=== PATIENT | female | born 1950 | race Caucasian/White ===

== ENCOUNTER 2017-03-21 12:59 | Day surgery (SDC) | payer BC ==
[2017-03-21] MEDS ORDERED: Lidocaine 1% MPF wEPI 200,000* 30 ML SDV ONE (15:09)
[2017-03-21] MEDS ORDERED: Sodium Bicarbonate 8.4% SYR* 10 ML SYRINGE ONE (15:09)
[2017-03-21] MEDS ORDERED: Bupivacaine 0.25% SDV* 30 ML ONE (15:59)
[2017-03-21 16:44] VITALS: BP 128/75
--- NOTE | 2017-04-16 20:37 | OP ---
DATE OF OPERATION: 03/21/17 - [facility] DATE OF : 54 SURGEON: Bert Jane MD ANESTHESIA: Local only with 1% lidocaine with epinephrine and bicarbonate. PRE-OP DIAGNOSIS: Left middle trigger finger. POST-OP DIAGNOSIS: Left middle trigger finger. OPERATIVE PROCEDURE: Left middle trigger finger A1 chente release. INDICATIONS: Gladis has had steroid injection for the trigger finger and it has recurred now, I believe she has had a couple of them. We had talked about risks and benefits. She wanted to proceed with the release. ESTIMATED BLOOD LOSS: 2 mL. COMPLICATIONS: None. FINDINGS: As expected. DESCRIPTION OF PROCEDURE: Ms. Lino was seen in the preoperative area. We had a time-out. I infiltrated the operative area with 1% lidocaine with epinephrine and bicarbonate. A short time later, we came back to the operating room. The arm was prepped and draped in usual fashion. I made a 1 cm longitudinal incision over the A1 chente of the left middle finger. Soft tissue was bluntly released off the tendon sheath. The tendon sheath was incised longitudinally and the release was completed distally and proximally. With the tenotomy scissors, this was done just off the radial aspect of the midline. Once the release was completed, I had her flex and extend the finger. There was no more catching so we irrigated out the wound. Skin was closed with 4-0 Monocryl suture. Wound was dressed with Xeroform, 4x4s , sterile Webril, and Fransico bandage. She was taken to the recovery room in stable condition. [id number]/[facility] #: [id number] MTDD
== END 2017-03-21 16:58 | disposition home or self-care (01) ==
LOC: OREAST 12:59
PROVIDERS: ATTEND Orthopaedic Surgery Hand Surgery
DX: M65.332 Trigger finger, left middle finger (principal); Z87.891 Personal history of nicotine dependence; M77.12 Lateral epicondylitis, left elbow
CPT/HCPCS: J2001

== ENCOUNTER 2019-04-22 20:13 | Emergency (ER) | payer MEDICARE ==
--- OUTSIDE RECORDS SUMMARY | 2019-04-22 20:42 | XMS REPORT | Continuity of Care Document ---
:1950 External Reference #:[id number] Author Name Luis Fernando Paige MD (transmitted by agent of provider Telma Subramanian) Address [address] [place] [id number] Care Team Providers Name Role Phone Ezequiel ONEIL Donnelly - Family Care Team Information Tin Assorter [phone] Problems Active Problems Provider Date Lateral epicondylitis Bert Jane MD Onset: 02/22/2017 Acquired trigger finger Bert Jane MD Onset: 02/22/2017 Social History Type Date Description Comments Sex Unknown ETOH Use Denies alcohol use Tobacco Use Start: Unknown End: Patient is a former Quit 1985 after 15 Unknown smoker years of 1 pack a week Recreational Drug Use Denies Drug Use Smoking Status Reviewed: 04/06/19 Patient is a former Quit 1985 after 15 smoker years of 1 pack a week Exercise Type/Frequency Exercises regularly Exercise Type/Frequency Exercises sporadically Allergies, Adverse Reactions, Alerts Active Allergies Reaction Severity Comments Date Codeine 02/15/2014 Sudafed 02/15/2014 Latex 02/22/2017 Red Yeast Rice Nausea,CALDWELL, Muscle discomfort 11/24/2018 Statins 11/25/2018 Medications Active Medications SIG Qnty Indications Ordering Provider Date Biotin Unknown [place]-3 Plus Unknown [facility] & 1 cap po qd Unknown Wellness Capsules Medications Administered in Office Medication SIG Qnty Indications Ordering Provider Date Celestone 3 mg and 3mg Bert Jane MD 09/21/2016 Injection Immunizations Description No Information Available Vital Signs Date Vital Result Comment 04/06/2019 1:19pm Height 64 inches 5'4" Weight 146.00 lb Heart Rate 78 /min BP Systolic 122 mmHg BP Diastolic 76 mmHg Respiratory Rate 12 /min Pain Level 5 BMI (Body Mass Index) 25.1 kg/m2 11/25/2018 10:31am Height 64 inches 5'4" Weight 145.00 lb Heart Rate 80 /min BP Systolic 132 mmHg Rue reg cuff sitting BP Diastolic 86 mmHg Rue reg cuff sitting BP Systolic Sitting 128 mmHg Lue reg cuff sitting BP Diastolic Sitting 90 mmHg Lue reg cuff sitting BP Systolic Standing 126 mmHg Lue reg cuff standing BP Diastolic Standing 90 mmHg Lue reg cuff standing Respiratory Rate 13 /min BMI (Body Mass Index) 24.9 kg/m2 Results Description No Information Available Procedures Date Code Description Status 01/21/2019 15356 Holter Monitor Review (24 hr)dr review & interp only Completed 01/19/2019 31307 ECG Monitor/Recording W/Visual Superimposition Scanning Completed 11/25/2018 65999 EKG Tracing & Interpretation Completed Medical Devices Description No Information Available Encounters Type Date Location Provider Dx Diagnosis Office Visit 11/25/2018 [facility] Rhett Sargent, E78.5 Hyperlipidemia, 10:40a Of Recreation Establishment Manager DO FACC unspecified Z82.49 Family hx of ischem heart dis and oth dis of the circ sys R00.2 Palpitations E78.01 Familial hypercholesterolemia Assessments Date Code Description Provider 04/06/2019 S46.012A Strain of muscle(s) and tendon(s) of the Luis Fernando Paige MD rotator cuff of left shoulder, initial encounter 04/06/2019 M25.512 Pain in left shoulder Luis Fernando Paige MD 01/21/2019 R00.2 Palpitations Leesa Gottlieb M.D. 01/19/2019 R00.2 Palpitations Nurse Visit IC 11/25/2018 E78.5 Hyperlipidemia, unspecified Rhett Sargent DO FACC 11/25/2018 Z82.49 Family history of ischemic heart disease Rhett Sargent DO FAC and other diseases of the circulatory system 11/25/2018 R00.2 Palpitations Rhett Sargent DO FACC 11/25/2018 E78.01 Familial hypercholesterolemia Rhett Sargent DO FAC Plan of Treatment 04/06/2019 - Luis Fernando Paige, MDS46.012A Strain of muscle(s) and tendon(s) of the rotator cuff of left shoulder, initial encounterNew Xrays:MRI Shoulder Left W/O, Ordered: 04/06/19Follow up:Follow up: after MRIM25.512 Pain in left shoulder Functional Status Description No Information Available Mental Status Description No Information Available Referrals Description No Information Available
--- OUTSIDE RECORDS SUMMARY | 2019-04-22 20:42 | XMS REPORT | Continuity of Care Document ---
:1950 External Reference #:[id number] Author Name Luis Fernando Paige MD (transmitted by agent of provider Rufina Aldana) Address [address] [place] [id number] Care Team Providers Name Role Phone Cony Nieves NP - Family Care Team Information Air Quality Manager [phone] Problems Active Problems Provider Date Lateral epicondylitis Bert Jane MD Onset: 02/22/2017 Acquired trigger finger Bert Jane MD Onset: 02/22/2017 Social History Type Date Description Comments Sex Unknown ETOH Use Denies alcohol use Tobacco Use Start: Unknown End: Patient is a former Quit 1985 after 15 Unknown smoker years of 1 pack a week Recreational Drug Use Denies Drug Use Smoking Status Reviewed: 04/16/19 Patient is a former Quit 1985 after 15 smoker years of 1 pack a week Exercise Type/Frequency Exercises regularly Exercise Type/Frequency Exercises sporadically Allergies, Adverse Reactions, Alerts Active Allergies Reaction Severity Comments Date Codeine 02/15/2014 Sudafed 02/15/2014 Latex 02/22/2017 Red Yeast Rice Nausea,CALDWELL, Muscle discomfort 11/24/2018 Statins 11/25/2018 Medications Active Medications SIG Qnty Indications Ordering Date Provider Valium take 1-2 2tabs Luis Fernando Alexander 04/13/2019 5mg Tablets tablets before MD Grecia mri Methylprednisolone take as 21units S46.012A Luis Fernando Alexander 04/06/2019 4mg TBPK directed MD Grecia [place]-3 Plus Unknown Probiotic 1 by mouth Unknown Capsules every day Medications Administered in Office Medication SIG Qnty Indications Ordering Provider Date Celestone 3 mg and 3mg Bert Jane MD 09/21/2016 Injection Immunizations Description No Information Available Vital Signs Date Vital Result Comment 04/16/2019 2:19pm Height 64 inches 5'4" Weight 146.00 lb Heart Rate 86 /min BP Systolic 120 mmHg BP Diastolic 80 mmHg Respiratory Rate 12 /min Body Temperature 98.4 F Pain Level 6 BMI (Body Mass Index) 25.1 kg/m2 04/06/2019 1:19pm Height 64 inches 5'4" Weight 146.00 lb Heart Rate 78 /min BP Systolic 122 mmHg BP Diastolic 76 mmHg Respiratory Rate 12 /min Pain Level 5 BMI (Body Mass Index) 25.1 kg/m2 Results Description No Information Available Procedures Date Code Description Status 01/21/2019 81044 Holter Monitor Review (24 hr)dr review & interp only Completed 01/19/2019 99579 ECG Monitor/Recording W/Visual Superimposition Scanning Completed 11/25/2018 09935 EKG Tracing & Interpretation Completed Medical Devices Description No Information Available Encounters Type Date Location Provider Dx Diagnosis Office Visit 11/25/2018 [facility] Rhett Sargent, E78.5 Hyperlipidemia, 10:40a Of Scale Shooter DO FACC unspecified Z82.49 Family hx of ischem heart dis and oth dis of the circ sys R00.2 Palpitations E78.01 Familial hypercholesterolemia Assessments Date Code Description Provider 04/16/2019 S40.012D Contusion of left shoulder, subsequent Luis Fernando Paige MD encounter 04/16/2019 S46.012D Strain of muscle(s) and tendon(s) of the Luis Fernando Paige MD rotator cuff of left shoulder, subsequent encounter 04/06/2019 S46.012A Strain of muscle(s) and tendon(s) of the Luis Fernando Paige MD rotator cuff of left shoulder, initial encounter 04/06/2019 M25.512 Pain in left shoulder Luis Fernando Paige MD 01/21/2019 R00.2 Palpitations Leesa Gottlieb M.D. 01/19/2019 R00.2 Palpitations Nurse Visit IC 11/25/2018 E78.5 Hyperlipidemia, unspecified Rhett Sargent DO FACC 11/25/2018 Z82.49 Family history of ischemic heart disease Rhett Sargent DO FACC and other diseases of the circulatory system 11/25/2018 R00.2 Palpitations Rhett Sargent DO FACC 11/25/2018 E78.01 Familial hypercholesterolemia Rhett Sargent, DO [facility] Plan of Treatment Future Appointment(s):05/28/2019 9:15 am - Luis Fernando Paige MD at [facility]/16/2019 - Luis Fernando Paige, MDS40.012D Contusion of left shoulder, subsequent encounterNew Therapy:Physical TherapyFollow up:Follow up: 6 weeks prnS46.012D Strain of muscle(s) and tendon(s) of the rotator cuff of left shoulder, subsequent encounter Functional Status Description No Information Available Mental Status Description No Information Available Referrals Description No Information Available
[2019-04-22] MEDS ORDERED: LORazepam TAB(*) 1 MG PO ONE (21:02)
--- NOTE | 2019-04-22 21:11 | ED ---
Psychiatric Complaint - HPI Summary HPI Summary: Patient complains of anxiety. Patient states she is concerned she is having a heart attack, would like some labs done. Denies any specific symptoms, pain or injury. Echo history is none. - History Of Current Complaint Chief Complaint: EDGeneral Time Seen by Provider: 04/22/19 21:01 Hx Obtained From: Patient Onset/Duration: Sudden Onset, Lasting Hours Timing: Constant Severity Initially: Moderate Severity Currently: Moderate Character: Anxious Aggravating Factor(s): Recent Stress Alleviating Factor(s): Nothing - Allergies/Home Medications Allergies/Adverse Reactions: Allergies Allergy/AdvReac Type Severity Reaction Status Date / Time codeine Allergy Stomach Verified 04/10/19 11:48 Cramps latex Allergy Rash Verified 04/10/19 11:48 pseudoephedrine Allergy Tachycardia Verified 04/10/19 11:48 [From Sudafed] PAIN MEDICATIONS Allergy DOES NOT Uncoded 04/10/19 11:44 LIKE THE FEELING Home Medications: Home Medications Multivitamins/Minerals TAB* [Theragran/minerals TAB*] 1 tab PO DAILY 04/22/19 [ History Confirmed 04/22/19] PMH/Surg Hx/FS Hx/Imm Hx Endocrine/Hematology History: Denies: Hx Diabetes Cardiovascular History: Denies: Hx Hypertension, Hx Pacemaker/ICD History: Denies: Hx Dialysis, Hx Renal Disease Sensory History: Denies: Hx Hearing Aid EENT History: Denies: Hx Deafness Psychiatric History: Reports: Hx Panic Disorder - ATTACKS - Cancer History Hx Chemotherapy: No Hx Radiation Therapy: No - Surgical History Surgery Procedure, Year, and Place: TRIGGER FINGER LEFT HAND Infectious Disease History: No Infectious Disease History: Denies: Traveled Outside the [place] in Last 30 Days - Family History Known Family History: Positive: Non-Contributory - Social History Alcohol Use: None Substance Use Type: Reports: None Smoking Status (MU): Former Smoker Review of Systems Constitutional: Negative Eyes: Negative ENT: Negative Cardiovascular: Negative Respiratory: Negative Gastrointestinal: Negative Genitourinary: Negative Musculoskeletal: Negative Skin: Negative Neurological/Mental Status: Negative Positive: Anxious All Other Systems Reviewed And Are Negative: Yes Physical Exam Triage Information Reviewed: Yes Vital Signs On Initial Exam: Initial Vitals Temp Pulse Resp BP Pulse Ox 97.8 F 84 20 158/92 97 04/22/19 20:22 04/22/19 20:22 04/22/19 20:22 04/22/19 20:22 04/22/19 20:22 Vital Signs Reviewed: Yes Appearance: Positive: Well-Appearing Skin: Positive: Warm Head/Face: Positive: Normal Head/Face Inspection Eyes: Positive: Normal Neck: Positive: Supple Respiratory/Lung Sounds: Positive: Clear to Auscultation Cardiovascular: Positive: Normal Abdomen Description: Positive: Nontender Musculoskeletal: Positive: Normal Neurological: Positive: Normal Psychiatric: Positive: Anxious AVPU Assessment: Alert - [place] Coma Scale Best Eye Response: 4 - Spontaneous Best Motor Response: 6 - Obeys Commands Best Verbal Response: 5 - Oriented Coma Scale Total: 15 Procedures - Sedation Patient Received Moderate/Deep Sedation with Procedure: No Diagnostics - Vital Signs Vital Signs Temp Pulse Resp BP Pulse Ox 04/22/19 21:00 78 98 04/22/19 20:54 72 174/87 97 04/22/19 20:22 97.8 F 84 20 158/92 97 - Laboratory Result Diagrams: 04/22/19 21:21 04/22/19 21:21 Lab Statement: Any lab studies that have been ordered have been reviewed, and results considered in the medical decision making process. Course/Dx - Course Course Of Treatment: Patient complains of anxiety. Patient states she is concerned she is having a heart attack, would like some labs done. Denies any specific symptoms, pain or injury. Medical history is none. Vital signs within normal limits. Labs negative. troponin is negative. EKG sinus rhythm , rate of 70, normal P axis. - Differential Dx/Clinical Impression Provider Diagnosis: Anxiety Discharge ED - Sign-Out/Discharge Documenting (check all that apply): Patient Departure - Discharge Plan Condition: Stable Disposition: HOME Patient Education Materials: Anxiety (ED) Referrals: Cony Nieves NP [Primary Care Provider] - Additional Instructions: Follow-up with primary care - Billing Disposition and Condition Condition: STABLE Disposition: Home
[2019-04-22 21:28] LABS: ABS Eosinophils 0.2 10^3/ul (0-0.6); ABS Lymphocytes 1.4 10^3/ul (1.0-4.8); ABS Monocytes 0.6 10^3/ul (0-0.8); Eosinophil % 2.4 %; Hematocrit 38 % (35-47); Hemoglobin 13.2 g/dL (12.0-16.0); Lymphocyte % 17.1 %; Mean Corpuscular HGB Conc 35 g/dL (31-36); Mean Corpuscular Hemoglobin 31 pg (27-31); Mean Corpuscular Volume 88 fL (80-97); Mean Platelet Volume 8.8 fL (7.4-10.4); Platelet Count 197 10^3/uL (150-450); Red Blood Count 4.29 10^6 /uL (3.70-4.87); Red Cell Distribution Width 13 % (10-15); White Blood Count 8.3 10^3/uL (3.5-10.8)
[2019-04-22 21:44] LABS: Albumin 4.1 g/dL (3.2-5.2); Albumin/Globulin Ratio 1.5 (1-3); BUN/Creatinine Ratio 16.7 (8-20); C Reactive Protein 1.9 mg/L (<8.01); Calcium 8.9 mg/dL (8.6-10.3); EGFR African American 98.1 (>60); Globulin 2.7 g/dL (2-4); Potassium 3.8 mmol/L (3.5-5.0); Total Bilirubin 0.6 mg/dL (0.2-1.0); Total Protein 6.8 g/dL (6.4-8.9)
[2019-04-22 21:53] VITALS: BP 139/85
== END 2019-04-22 21:52 | disposition home or self-care (01) ==
LOC: ED 20:13
DX: F41.9 Anxiety disorder, unspecified (principal); Z87.891 Personal history of nicotine dependence; Z88.5 Allergy status to narcotic agent; Z88.8 Allergy status to other drugs, medicaments and biological substances; Z88.6 Allergy status to analgesic agent; Z91.040 Latex allergy status
CPT/HCPCS: 36415; 80053; 85025; 86140; 93005; 99282